=== PATIENT | female | born 1965 ===

== ENCOUNTER 2021-04-17 07:43 | Emergency (ER) | payer OTHER ==
[2021-04-17 07:48] VITALS: BP 156/82; RESP 18; TEMP 98.4
[2021-04-17] MEDS ORDERED: LIDOCAINE 1% INJ 10MG/ML (20 ML MDV) SQ ONE (07:57)
[2021-04-17] MEDS ORDERED: TRANEXAMIC ACID 1,000 MG/10 ML VIAL IRRIGATION ONE (07:57)
[2021-04-17] MEDS ORDERED: DIPH,PERTUS(ACELL)TETVAC-LF 0.5 ML VIAL IM ONE (07:58)
--- NOTE | 2021-04-17 08:01 | ED ---
General Adult HPI - General Chief complaint: Extremity Injury, Upper Stated complaint: finger lac Time Seen by Provider: 04/17/21 07:45 Source: patient, RN notes reviewed, old records reviewed Mode of arrival: ambulatory Limitations: no limitations - History of Present Illness Initial comments: This is a 55-year-old female who presents to the emergency department complaining of cutting her right middle finger on a meat boner. Patient states he feels skin is completely avulsed and she did not bring it with her. She just comes in because of the pain and the fact that is still bleeding a little. Patient also states it cut her nails slightly as well. Patient denies any other injury at this time patient states she has not had a tetanus up-to-date. - Related Data Previous Rx's Medication Instructions Recorded Cephalexin [Keflex] 500 mg PO Q6HR #28 cap 04/17/21 Ketorolac [Toradol] 10 mg PO Q6HR #15 tab 04/17/21 Allergies Allergy/AdvReac Type Severity Reaction Status Date / Time No Known Allergies Allergy Verified 04/17/21 07:48 Review of Systems ROS Statement: Those systems with pertinent positive or pertinent negative responses have been documented in the HPI. ROS Other: All systems not noted in ROS Statement are negative. Past Medical History Past Medical History: No Reported History History of Any Multi-Drug Resistant Organisms: None Reported Past Surgical History: Uterine Ablation Past Psychological History: No Psychological Hx Reported Smoking Status: Never smoker Past Alcohol Use History: None Reported Past Drug Use History: None Reported General Exam - General Exam Comments Initial Comments: GENERAL Patient is well-developed and well-nourished. Patient is in mild distress. EYES Patient's pupils are equal and round. Extraocular motion is intact SKIN Unremarkable NEURO The patient is alert and oriented 3 PYSCH Patient has normal interpersonal interactions. MUSCULOSKELETAL Patient's right middle finger has an avulsion on the medial aspect of her distal finger measures about three fourths of a centimeter in width and about 2 and half centimeters in length. Limitations: no limitations Course Vital Signs 04/17/21 07:45 Temperature 98.4 F Pulse Rate 114 H Respiratory 18 Rate Blood Pressure 156/82 O2 Sat by Pulse 97 Oximetry Medical Decision Making - Medical Decision Making I did a digital block with 1% lidocaine and then the wound was cleaned and 86 and TXA on the wound and use Gelfoam on the wound is well and did a tight finger wrap to stop the bleeding. Patient also received tetanus. Disposition Clinical Impression: Avulsion of skin of finger Disposition: HOME SELF-CARE Condition: Good Instructions (If sedation given, give patient instructions): Skin Avulsion (ED) Prescriptions: Cephalexin [Keflex] 500 mg PO Q6HR #28 cap Ketorolac [Toradol] 10 mg PO Q6HR #15 tab Is patient prescribed a controlled substance at d/c from ED?: No Referrals: Nonstaff,Physician [Primary Care Provider] - 1-2 days Time of Disposition: 08:18
[2021-04-17] MEDS ORDERED: GELATIN SPONGE,ABSORB (SMALL) 1 EACH SPONGE TOPICAL STA (08:11)
[2021-04-17 08:49] VITALS: PULSE 115
== END 2021-04-17 08:48 | disposition home or self-care (01) ==
LOC: EC 07:43
DX: S61.202A Unspecified open wound of right middle finger without damage to nail, initial encounter (principal); Z23 Encounter for immunization; W26.8XXA Contact with other sharp object(s), not elsewhere classified, initial encounter
CPT/HCPCS: 90715; 64450; 90471; 99283; J2001